=== PATIENT | female | born 1950 | race Caucasian/White ===

== ENCOUNTER → 2016-09-22 | Day surgery (SDC) | payer OTHER ==
--- NOTE | 2016-09-16 17:55 | HP ---
PREOPERATIVE HISTORY AND PHYSICAL: DATE OF ADMISSION/SURGERY: 09/22/16 DATE OF OFFICE VISIT: 09/16/16 ATTENDING SURGEON: Dr. Shaka Toro. PROCEDURE: Right middle and ring trigger finger release. CHIEF COMPLAINT: Right middle and ring finger pain. HISTORY OF PRESENT ILLNESS: Ms. Gandhi is a 65-year-old female, who presents to the clinic for a foll owup of right middle and ring finger pain and locking. The patient states she is unable to use her right hand due to the pain and locking. She has failed conservative measures such an injection and t herefore has elected to undergo a right middle and ring trigger finger release with Dr. Toro on 06/29. PAST MEDICAL HISTORY: Hypercholesterolemia. PAST SURGICAL HISTORY: [place] teeth extraction, myomectomy, , and right total hip arthropl asty. MEDICATIONS: 1. Pravastatin sodium 40 mg 1 tab daily at bedtime. 2. Zyrtec 10 mg p.o. daily. 3. Z-Scott take as directed on package. ALLERGIES: SULFA ANTIBIOTICS, EPINEPHRINE, and ADHESIVE ON . FAMILY HISTORY: Mom, history of scleroderma and DVT. Dad, history of aortic valve disease. SOCIAL HISTORY: A 65-year-old female lives with her and son. She reports occasional alcoho l consumption. She denies smoking or illegal drug use. REVIEW OF SYSTEMS: A 14-point review of systems was reviewed with patient and found to be negative. PHYSICAL EXAMINATION GENERAL: Well-developed, well-nourished female, in no acute distress. VITAL SIGNS: Height 65, weight 170, pulse 110, blood pressure 146/73, BMI 28.7. HEENT: Normocephalic, atraumatic. PERRLA. NECK: Supple. Throat clear. PULMONARY: Lungs are clear to auscultation bilaterally. No wheezing, rhonchi, or rales. CARDIO: Regular rate and rhythm. S1, S2. No murmurs, gallops, or rubs. No edema. ABDOMEN: Positive bowel sounds. Soft, nontender. NEUROLOGIC: Alert and oriented x3. Cranial nerves grossly intact. Sensation is intact to light to uch. MUSCULOSKELETAL: Right upper extremity, no visible swelling of the hand. Tenderness to palpation of the A1 ana of the middle and ring finger. The patient is able to make a full fist with signific ant pain. +2 radial pulse. Sensation intact to light touch distally. DIAGNOSTIC STUDIES: None. IMPRESSION: Right middle and ring trigger fingers. PLAN: The patient is scheduled to undergo a right middle and ring trigger finger release with Dr. Corey dalal on 09/22/16. She will return to the office 10 days postop for followup and suture removal. Th e patient states she was recently seen by primary care and is currently on a Z-Scott for cold. Her sy mptoms are improving. We will continue with surgery as long as she is feeling well at the time of s urgery. A prescription of [place] was e-prescribed to the patient's pharmacy for postoperative pain elsi lópez. She had taken an unknown pain medication before, which had made her itchy. The patient w as instructed to take Benadryl for itching if it occurs with the use of [place] and to call the office to change medication if this occurs. KELLEY ROBERTSON [id number]/[facility] #: [id number]
[~2016-09-22] MED LIST: Acetaminophen TAB* 325 MG PO PRN; Buffered Lidocaine 1% SYR 3ML* 3 ML/SYR SYRINGE INTRADERM ONE; Buffered Lidocaine 1% SYR 3ML* 3 ML/SYR SYRINGE ONE; Bupivacaine 0.25% SDV* 30 ML ONE; DiMENhydriNATE IV* 50 MG/ML VIAL IV PUSH PRN; Midazolam* 1 MG/ML 2 ML VIAL (2 MG) ONE; Ondansetron INJ* 2 MG/ML VIAL IV PRN; ceFAZolin 2 GM PREMIX (*) 2 GM/50 ML BAG IVPB ONE; fentaNYL* 50 MCG/ML 2 ML VIAL (100 MCG VIAL) ONE
[2016-09-22 13:40] VITALS: BP 111/61
--- NOTE | 2016-09-22 22:45 | OP ---
DATE OF OPERATION: 09/22/16 - SDS DATE OF : [birth year] - AGE: 65. SURGICAL CARE: Right hand. SURGEON: Dr. Toro. CAR INSTALLATIONS SUPERVISOR: Mirna Heredia. ANESTHESIOLOGIST: Dr. Navneet Hardy. ANESTHESIA: IV sedation MAC. Local anesthetic right hand, Dr. Toro, 0.25% Marcaine without epinephrine. PRE-OP DIAGNOSIS: Locking flexor tendonitis of the right middle and ring finger. POST-OP DIAGNOSIS: Locking flexor tendonitis of the right middle and ring finger. OPERATIVE PROCEDURE: Release of the flexor tendon sheath and A1 ana, right middle and ring finger. COMPLICATIONS: There were no complications. DRAINS: There were no drains. Tourniquet control was utilized on the right proximal forearm and the condition was stable to the recovery area. DESCRIPTION OF PROCEDURE: The patient was brought to the operating room on the hospital stretcher. The right upper extremity was wrapped with a proximal forearm tourniquet and the right forearm, wrist and hand were prepped and draped in the usual manner for surgical care of the hand. After prepping, draping and sealing off, we did our universal protocol time-out confirming Cristiana Gandhi and a plan for right hand surgical care. We all agreed and we proceeded. The local area of the A1 ana of the right middle and ring fingers were infiltrated with Marcaine 0.25%, no epinephrine with 25 gauge needle and this included the flexor tendon sheaths. After the anesthetic took effect, then the hand was exsanguinated. The tourniquet elevated to 250. A transverse skin incision was made over the A1 ana of the middle finger and the ring finger. Skin divided sharply and subcu was divided bluntly down to the tendon sheath on each finger. The tendon sheath was then open longitudinally. There was no redness, swelling or visible inflammation on either tendon except that the A1 ana seemed a little thickened. The tendons were pristine and not frayed. The sheath on each one was opened at the A1 ana and then were going proximally and distally so that there was no tight tendon sheath on either one. The wounds were irrigated with saline. The skin was closed with interrupted 5-0 Surgipro sutures simple and vertical mattress and the area was washed and dried and covered with Betadine-soaked release, followed by fluffs, sterile gauze, 4-inch Nancy, 4-inch Webril, and then a 3- inch Surya bandage. The patient was returned to the hospital recovery area in stable and satisfactory condition having tolerated the procedure very well. [id number]/[facility] #: [id number] SHARRI
== END | disposition home or self-care (01) ==
LOC: OR 07:54
PROVIDERS: ATTEND Orthopaedic Surgery
DX: M65.331 Trigger finger, right middle finger (principal); M65.341 Trigger finger, right ring finger; E78.00 Pure hypercholesterolemia, unspecified
CPT/HCPCS: J0690; J2250; J3010